=== PATIENT | male | born 1985 | race Caucasian/White ===

== ENCOUNTER 2018-07-06 03:26 | Inpatient (IN) | payer OTHER ==
[2018-07-06] MEDS: ONDANSETRON 4 MG INJ IV (04:27)
[2018-07-06] MEDS: morphine 4 MG/ML VIAL IV (04:27)
[2018-07-06] MEDS: PIPER-TAZO 3.375 GM IV (PMX) 100 ML IVPB ×2 (04:27→21:07)
[2018-07-06] MEDS: SOD CHLORIDE 0.9% 1,000 ML IV ×2 (04:27→07:52)
[2018-07-06 04:40] LABS: WHITE BLOOD COUNT 2.5 10^3/ul (4.8-10.8)
[2018-07-06 04:40] LABS: ABNORMAL IP MESSAGE 1; HEMATOCRIT 26.8 % (42.0-52.0); HEMOGLOBIN 8.6 g/dl (14.0-18.0); MEAN CORPUSCULAR HEMOGLOBIN 26.4 pg (29.0-33.0); MEAN CORPUSCULAR HGB CONC 32.1 g/dl (32.0-37.0); MEAN CORPUSCULAR VOLUME 82.2 fl (82.0-101.0); PLATELET COUNT 56 10^3/UL (140-415); POSITIVE DIFF @See below; RED BLOOD COUNT 3.26 10^6/ul (4.70-6.10)
[2018-07-06 04:43] LABS: ADD MAN DIFF? YES
[2018-07-06 04:56] LABS: ANION GAP 12 (8-16); BLOOD UREA NITROGEN 30 mg/dl (7-20); CALCIUM 8.6 mg/dl (8.4-10.2); CARBON DIOXIDE 29 mmol/L (21-31); CHLORIDE 95 mmol/L (97-110); CREATININE 0.96 mg/dl (0.61-1.24); GLUCOSE 127 mg/dl (70-220); POTASSIUM 4.1 mmol/L (3.5-5.1); SODIUM 132 mmol/L (135-144)
[2018-07-06 04:58] LABS: INR 1.03; PROTIME 13.6 Sec (11.9-14.9); PT RATIO 1.1
[2018-07-06 04:59] LABS: PARTIAL THROMBOPLASTIN TIME 28.9 Sec (25.0-35.0)
[2018-07-06 05:08] LABS: TROPONIN-I < 0.012 ng/ml (0.000-0.120)
[2018-07-06] MEDS ORDERED: HALOPERIDOL 5 MG INJ (05:32)
[2018-07-06] MEDS: HALOPERIDOL 5 MG INJ IM (05:38)
[2018-07-06 06:26] LABS: ANISOCYTOSIS 1+ (0-0); BAND NEUTROPHILS #M 0.3 10^3/ul (0.0-0.6); BAND NEUTROPHILS % (M) 14 % (0-4); ERYTHROBLAST% (NRBC) (M) 1 % (0-0); GIANT THROMBO% (M) 1 % (0-0); LYMPHOCYTES #M 0.2 10^3/ul (0.8-2.9); LYMPHOCYTES % (M) 8 % (15-51); MICROCYTOSIS 1+ (0-0); MONOCYTES % (M) 3 % (0-11); OVALOCYTES 1+ (0-0); PLATELET ESTIMATE SIG DECREASED; POIKILOCYTOSIS 2+ (0-0); POLYCHROMASIA 1+ (0-0); REACTIVE LYMPHOCYTES% (M) 1 % (0-0); SEG NEUT #M 1.9 10^3/ul (1.6-7.5); SEGMENTED NEUTROPHILS (M) % 74 % (39-77); SMUDGE%M 5 % (0-0); SPHEROCYTES 1+ (0-0); TEAR DROP CELLS 1+ (0-0)
[2018-07-06] MEDS: VANCOMYCIN 1 GM (PMX) 250 ML IVPB (07:52)
[2018-07-06] MEDS: SOD CHLORIDE 0.9% 500 ML IV (08:56)
[2018-07-06] MEDS ORDERED: VANCOMYCIN IV PER PHARMACY XX (15:00)
[2018-07-06] MEDS ORDERED: ONDANSETRON 4 MG INJ IV (15:00)
[2018-07-06 15:29] LABS: LACTIC ACID 1.6 mmol/L (0.5-2.0)
[2018-07-06 15:31] LABS: LIPASE 125 U/L (23-300)
[2018-07-06 15:39] LABS: CREATINE KINASE 288 IU/L (23-200)
[2018-07-06 15:52] LABS: CK INDEX 0.1; CK-MB < 0.22 ng/ml (0.0-2.4); TROPONIN-I < 0.012 ng/ml (0.000-0.120)
[2018-07-06] MEDS: ACETAMINOPHEN 325 MG TAB PO (16:26)
[2018-07-06] MEDS: HYDROCODONE/APAP (5/325) TAB PO (16:26)
[2018-07-06 16:49] LABS: ADD UMIC YES; UR ASCORBIC ACID NEGATIVE (NEGATIVE); UR BACTERIA FEW /HPF (NONE SEEN); UR BILIRUBIN (Dip) NEGATIVE (NEGATIVE); UR BLOOD (Dip) 1+ mg/dL (NEGATIVE); UR CLARITY CLEAR (CLEAR); UR COLOR YELLOW (YELLOW); UR GLUCOSE (Dip) NEGATIVE (NEGATIVE); UR KETONES (Dip) NEGATIVE (NEGATIVE); UR LEUKOCYTE ESTERASE (Dip) NEGATIVE Leu/ul (NEGATIVE); UR NITRITE (Dip) NEGATIVE (NEGATIVE); UR RBC 2 /HPF (0-5); UR SPECIFIC GRAVITY (Dip) 1.018 (1.003-1.030); UR TOTAL PROTEIN (Dip) 1+ mg/dl (NEGATIVE); UR UROBILINOGEN (Dip) 2+ mg/dL (NEGATIVE); UR WBC 1 /HPF (0-5)
[2018-07-06 17:06] LABS: BARBITURATES Negative (NEGATIVE); BENZODIAZEPINES Negative (NEGATIVE); CANNABINOIDS Negative (NEGATIVE); COCAINE Negative (NEGATIVE)
[2018-07-06 17:09] LABS: AMPHETAMINE/METHAMPHETAMINE Positive (NEGATIVE); OPIATES Positive (NEGATIVE)
[2018-07-06 17:18] LABS: LACTIC ACID 1.8 mmol/L (0.5-2.0)
[2018-07-06] MEDS: VANCOMYCIN 1 GM 250 ML IVPB (17:47)
[2018-07-06 18:03] LABS: HIV 1&2 ANTIBODY REACTIVE (NEGATIVE)
[2018-07-06] MEDS: DEXTROSE 5%-0.45% NACL 1,000 ML IV (18:23)
[2018-07-06] MEDS: DOCUSATE SODIUM 100 MG CAP PO (21:00)
[2018-07-06] MEDS: FAMOTIDINE 20 MG INJ IV (21:05)
[2018-07-06] MEDS: LORAZEPAM 2 MG INJ IV (21:06)
[2018-07-07] MEDS: METOCLOPRAMIDE 10 MG INJ IV ×5 (00:01→23:18)
[2018-07-07] MEDS: VANCOMYCIN 1 GM 250 ML IVPB ×4 (00:02→20:00)
[2018-07-07] MEDS: DEXTROSE 5%-0.45% NACL 1,000 ML IV ×4 (04:17→23:33)
[2018-07-07] MEDS: HYDROCODONE/APAP (5/325) TAB PO ×2 (04:17→10:30)
[2018-07-07] MEDS: PIPER-TAZO 3.375 GM IV (PMX) 100 ML IVPB ×2 (05:26→13:00)
[2018-07-07 06:10] LABS: ABNORMAL IP MESSAGE 1; HEMATOCRIT 22.9 % (42.0-52.0); HEMOGLOBIN 7.5 g/dl (14.0-18.0); MEAN CORPUSCULAR HEMOGLOBIN 26.5 pg (29.0-33.0); MEAN CORPUSCULAR HGB CONC 32.8 g/dl (32.0-37.0); MEAN CORPUSCULAR VOLUME 80.9 fl (82.0-101.0); PLATELET COUNT 55 10^3/UL (140-415); POSITIVE DIFF @See below; RED BLOOD COUNT 2.83 10^6/ul (4.70-6.10); RED CELL DISTRIBUTION WIDTH 16.1 % (11.5-14.5)
[2018-07-07 06:10] LABS: WHITE BLOOD COUNT 2.3 10^3/ul (4.8-10.8)
[2018-07-07 06:16] LABS: ADD MAN DIFF? YES
[2018-07-07 06:35] LABS: PHOSPHORUS 2.3 mg/dl (2.5-4.9)
[2018-07-07 06:37] LABS: ANION GAP 8 (8-16); BLOOD UREA NITROGEN 19 mg/dl (7-20); CALCIUM 7.6 mg/dl (8.4-10.2); CARBON DIOXIDE 23 mmol/L (21-31); CHLORIDE 108 mmol/L (97-110); CREATININE 0.66 mg/dl (0.61-1.24); GLUCOSE 128 mg/dl (70-220); MAGNESIUM 1.7 mg/dl (1.7-2.5); POTASSIUM 3.2 mmol/L (3.5-5.1); SODIUM 136 mmol/L (135-144)
[2018-07-07 07:13] LABS: ANISOCYTOSIS 1+ (0-0); BAND NEUTROPHILS #M 0.4 10^3/ul (0.0-0.6); BAND NEUTROPHILS % (M) 19 % (0-4); BURR CELLS 1+ (0-0); GIANT THROMBO% (M) 1 % (0-0); LYMPHOCYTES % (M) 3 % (15-51); MICROCYTOSIS 1+ (0-0); MONOCYTES % (M) 3 % (0-11); OVALOCYTES 3+ (0-0); PLATELET ESTIMATE SIG DECREASED; POIKILOCYTOSIS 3+ (0-0); POLYCHROMASIA 1+ (0-0); SEG NEUT #M 1.7 10^3/ul (1.6-7.5); SEGMENTED NEUTROPHILS (M) % 75 % (39-77); SMUDGE%M 5 % (0-0)
[2018-07-07 08:31] LABS: HEMOGLOBIN A1C 5.6 % (0-5.9)
[2018-07-07] MEDS: DOCUSATE SODIUM 100 MG CAP PO ×2 (09:38→20:04)
[2018-07-07] MEDS: FAMOTIDINE 20 MG INJ IV ×2 (09:38→20:04)
[2018-07-07] MEDS ORDERED: NICOTINE POLACRILEX 2 MG GUM BUCCAL (12:30)
[2018-07-07] MEDS: NICOTINE (21 MG/24 HR) PATCH TRANSDERM (13:23)
[2018-07-07] MEDS: LORAZEPAM 2 MG INJ IV ×2 (14:23→23:16)
[2018-07-07] MEDS: POTASSIUM PHOSPHATE 15 MM in SOD CHLORIDE 0.9% 250 ML IVPB (14:54)
[2018-07-07] MEDS: FLUCONAZOLE 100 MG TAB PO (15:07)
[2018-07-07] MEDS: TRIMETHOPRIM/SULFAMETHOX (DS) TAB PO (15:07)
[2018-07-07] MEDS: AZITHROMYCIN 250 MG TAB PO (15:07)
[2018-07-07] MEDS: ACYCLOVIR 400 MG TAB PO (16:17)
[2018-07-07] MEDS: NYSTATIN SUSP 5 ML CUP PO ×2 (16:17→20:03)
[2018-07-07] MEDS: SOD CHLORIDE 0.9% 100 ML (17:21)
[2018-07-07] MEDS: IOHEXOL 300MG/ML 150 ML BTL (17:22)
[2018-07-07 18:49] LABS: VANCOMYCIN,TROUGH 15.3 ug/ml (10.0-20.0)
[2018-07-07 21:19] LABS: CREATINE KINASE 104 IU/L (23-200)
[2018-07-07 21:31] LABS: CK INDEX 0.4; CK-MB 0.42 ng/ml (0.0-2.4); TROPONIN-I 0.015 ng/ml (0.000-0.120)
[2018-07-08] MEDS: VANCOMYCIN 1 GM 250 ML IVPB (04:29)
[2018-07-08] MEDS: METOCLOPRAMIDE 10 MG INJ IV (05:10)
[2018-07-08] MEDS: HYDROCODONE/APAP (5/325) TAB PO (05:15)
[2018-07-08] MEDS: DOCUSATE SODIUM 100 MG CAP PO (09:00)
[2018-07-08] MEDS: FAMOTIDINE 20 MG INJ IV (09:00)
[2018-07-08] MEDS: NICOTINE (21 MG/24 HR) PATCH TRANSDERM (09:06)
[2018-07-08] MEDS: AZITHROMYCIN 250 MG TAB PO (09:06)
[2018-07-08] MEDS: TRIMETHOPRIM/SULFAMETHOX (DS) TAB PO (09:06)
[2018-07-08] MEDS: FLUCONAZOLE 100 MG TAB PO (09:06)
[2018-07-08] MEDS: ACYCLOVIR 400 MG TAB PO (09:06)
[2018-07-08] MEDS: NYSTATIN SUSP 5 ML CUP PO (09:07)
[2018-07-08] MEDS: CYANOCOBALAMIN 500 MCG TAB PO (09:30)
[2018-07-08] MEDS: FOLIC ACID 1 MG TAB PO (09:30)
[2018-07-08] MEDS: DEXTROSE 5%-0.45% NACL 1,000 ML IV (09:44)
[2018-07-08 17:41] LABS: LYMPHOCYTE - % CD4 (HELPER) 3 % (30-61); LYMPHOCYTE - %CD8 (SUPPRESSOR) 64 % (12-42); LYMPHOCYTE - ABSOLUTE 425 cells/uL (850-3900); LYMPHOCYTE - ABSOLUTE CD4 <20 cells/uL (490-1740); LYMPHOCYTE - ABSOLUTE CD8 273 cells/uL (180-1170); LYMPHOCYTE - CD4/CD8 RATIO 0.04 (0.86-5.00)
== END 2018-07-08 10:40 | disposition left against medical advice (07) | DRG 975 ==
LOC: E/R 03:26 → 6WM 06:31
DX: A41.9 Sepsis, unspecified organism (principal); B20 Human immunodeficiency virus [HIV] disease; E87.1 Hypo-osmolality and hyponatremia; J18.9 Pneumonia, unspecified organism; B37.81 Candidal esophagitis; I07.9 Rheumatic tricuspid valve disease, unspecified; F15.10 Other stimulant abuse, uncomplicated; F12.10 Cannabis abuse, uncomplicated; G40.909 Epilepsy, unspecified, not intractable, without status epilepticus; R11.2 Nausea with vomiting, unspecified; E87.6 Hypokalemia; F60.9 Personality disorder, unspecified; F17.210 Nicotine dependence, cigarettes, uncomplicated; Z91.14 Patient's other noncompliance with medication regimen
CPT/HCPCS: 36415; 71045; 71260; 80048; 80202; 80307; 81001; 82550; 82553; 83036; 83605; 83690; 83735; 84100; 84484; 85025; 85610; 85730; 86360; 86701; 86703; 87040; 87086; 87536; 93005; 93306; 96365; 96366; 96372; 96375; 99285-25

== ENCOUNTER 2018-10-31 06:24 | Observation (INO) | payer OTHER ==
[2018-10-31 06:55] LABS: ABNORMAL IP MESSAGE 1; ADD MAN DIFF? NO; HEMATOCRIT 32.4 % (42.0-52.0); HEMOGLOBIN 10.3 g/dl (14.0-18.0); MEAN CORPUSCULAR HEMOGLOBIN 25.8 pg (29.0-33.0); MEAN CORPUSCULAR HGB CONC 31.8 g/dl (32.0-37.0); MEAN PLATELET VOLUME 9.7 fl (7.4-10.4); PLATELET COUNT 233 10^3/UL (140-415); POSITIVE DIFF @See below; RED CELL DISTRIBUTION WIDTH 15.5 % (11.5-14.5)
[2018-10-31 06:55] LABS: WHITE BLOOD COUNT 2.1 10^3/ul (4.8-10.8)
[2018-10-31 07:14] LABS: INR 1.08; PROTIME 14.1 Sec (11.9-14.9); PT RATIO 1.1
[2018-10-31 07:15] LABS: PARTIAL THROMBOPLASTIN TIME 29.7 Sec (23.0-35.0)
[2018-10-31 07:16] LABS: ALANINE AMINOTRANSFERASE 20 IU/L (13-69); ALBUMIN/GLOBULIN RATIO 0.78; ALKALINE PHOSPHATASE 159 IU/L (42-121); ANION GAP 13 (5-13); ASPARTATE AMINO TRANSFERASE 49 IU/L (15-46); BILIRUBIN,INDIRECT 0.7 mg/dl (0-1.1); BILIRUBIN,TOTAL 0.7 mg/dl (0.2-1.3); BLOOD UREA NITROGEN 33 mg/dl (7-20); CALCIUM 10.2 mg/dl (8.4-10.2); CARBON DIOXIDE 32 mmol/L (21-31); CHLORIDE 92 mmol/L (97-110); CREATININE 0.77 mg/dl (0.61-1.24); Estimated GFR > 60 mL/min (>60); GLUCOSE 147 mg/dl (70-220); POTASSIUM 3.4 mmol/L (3.5-5.1); SODIUM 137 mmol/L (135-144); TOTAL PROTEIN 9.1 g/dl (6.1-8.1)
[2018-10-31] MEDS: ONDANSETRON 4 MG INJ IV (07:16)
[2018-10-31] MEDS: CEFTRIAXONE 1 GM/50 ML (PMX) 50 ML IVPB (07:16)
[2018-10-31] MEDS: SODIUM CHLORIDE 0.9% 1L BAG IV* (07:17)
[2018-10-31 07:26] LABS: TROPONIN-I < 0.012 ng/ml (0.000-0.120)
[2018-10-31] MEDS: KETOROLAC 30 MG INJ IV (07:34)
[2018-10-31] MEDS: POTASSIUM CHLORIDE (SR) 20 MEQ TAB PO (07:58)
[2018-10-31 08:23] LABS: ANISOCYTOSIS 1+ (0-0); BAND NEUTROPHILS #M 0.4 10^3/ul (0.0-0.6); BAND NEUTROPHILS % (M) 21 % (0-4); ERYTHROBLAST% (NRBC) (M) 1 % (0-0); GIANT THROMBO% (M) 3 % (0-0); LYMPHOCYTES #M 0.5 10^3/ul (0.8-2.9); LYMPHOCYTES % (M) 28 % (15-51); METAMYELOCYTES %M 4 % (0-0); MICROCYTOSIS 1+ (0-0); MONOCYTE #M 0.3 10^3/ul (0.3-0.9); MONOCYTES % (M) 18 % (0-11); MYELOCYTES % (M) 1 % (0-0); OVALOCYTES 1+ (0-0); PLASMAC%(M) 2 % (0); PLATELET ESTIMATE NORMAL; POIKILOCYTOSIS 3+ (0-0); POLYCHROMASIA 3+ (0-0); PROMYELOCYTES % (M) 1 % (0-0); SEG NEUT #M 0.5 10^3/ul (1.6-7.5); SEGMENTED NEUTROPHILS (M) % 25 % (39-77); SMUDGE%M 2 % (0-0)
[2018-10-31 08:25] LABS: TOXIC GRANULATION 1+ (0-0)
[2018-10-31] MEDS ORDERED: ONDANSETRON 4 MG INJ IV ×2 (09:00→11:00)
[2018-10-31] MEDS ORDERED: NACL 0.9% 3 ML SYG IV (11:00)
[2018-10-31] MEDS: SOD CHLORIDE 0.9% 1,000 ML IV ×3 (11:21→23:09)
[2018-10-31 12:01] LABS: LACTIC ACID 1.3 mmol/L (0.5-2.0)
[2018-10-31] MEDS ORDERED: ALBUTEROL/IPRATROPIUM (NEB) 3 ML AMP HHN (12:30)
[2018-10-31] MEDS: METOCLOPRAMIDE 10 MG INJ IV ×3 (13:09→23:05)
[2018-10-31] MEDS: LEVOFLOXACIN 750MG/D5W (PMX) 150 ML IVPB (13:10)
[2018-10-31] MEDS: TRIMETHOPRIM/SULFAMETHOX (DS) TAB PO ×2 (13:10→21:11)
[2018-10-31] MEDS: LACTOBACILLUS RHAMNOSUS CAP PO ×2 (13:10→21:11)
[2018-10-31] MEDS: metroNIDAZOLE 500 MG/NS (PMX) 100 ML IVPB ×2 (14:59→21:12)
[2018-10-31] MEDS ORDERED: OXYCODONE/ACETAMINOPHEN (5/325) TAB PO (18:00)
[2018-10-31] MEDS ORDERED: OXYCODONE/ACETAMINOPHEN (10/325) TAB PO (18:00)
[2018-10-31] MEDS: morphine SULFATE/PF (2 MG/2 ML) SYG IV ×2 (18:24→23:05)
[2018-10-31] MEDS ORDERED: CIPROFLOXACIN 400MG/D5W 200 ML IVPB (21:00)
[2018-10-31] MEDS: FAMOTIDINE 20 MG INJ IV (21:12)
[2018-11-01 01:14] LABS: ADD UMIC YES; UR ASCORBIC ACID 40 mg/dL (NEGATIVE); UR BILIRUBIN (Dip) NEGATIVE (NEGATIVE); UR BLOOD (Dip) NEGATIVE (NEGATIVE); UR CLARITY CLOUDY (CLEAR); UR COLOR AMBER (YELLOW); UR GLUCOSE (Dip) NEGATIVE (NEGATIVE); UR KETONES (Dip) NEGATIVE (NEGATIVE); UR LEUKOCYTE ESTERASE (Dip) NEGATIVE Leu/ul (NEGATIVE); UR MUCUS MANY /HPF (NONE SEEN); UR NITRITE (Dip) NEGATIVE (NEGATIVE); UR RBC 1 /HPF (0-5); UR SPECIFIC GRAVITY (Dip) 1.032 (1.003-1.030); UR TOTAL PROTEIN (Dip) 3+ mg/dl (NEGATIVE); UR UROBILINOGEN (Dip) NEGATIVE (NEGATIVE); UR WBC 4 /HPF (0-5)
[2018-11-01] MEDS: morphine SULFATE/PF (2 MG/2 ML) SYG IV ×3 (03:16→12:46)
[2018-11-01] MEDS: metroNIDAZOLE 500 MG/NS (PMX) 100 ML IVPB ×3 (05:18→21:01)
[2018-11-01] MEDS: METOCLOPRAMIDE 10 MG INJ IV ×4 (05:18→23:48)
[2018-11-01 05:45] LABS: WHITE BLOOD COUNT 1.5 10^3/ul (4.8-10.8)
[2018-11-01 05:45] LABS: ABNORMAL IP MESSAGE 1; HEMATOCRIT 25.4 % (42.0-52.0); HEMOGLOBIN 8.3 g/dl (14.0-18.0); MEAN CORPUSCULAR HEMOGLOBIN 26.3 pg (29.0-33.0); MEAN CORPUSCULAR HGB CONC 32.7 g/dl (32.0-37.0); MEAN CORPUSCULAR VOLUME 80.4 fl (82.0-101.0); MEAN PLATELET VOLUME 11.6 fl (7.4-10.4); PLATELET COUNT 212 10^3/UL (140-415); POSITIVE DIFF @See below; RED BLOOD COUNT 3.16 10^6/ul (4.70-6.10); RED CELL DISTRIBUTION WIDTH 15.6 % (11.5-14.5)
[2018-11-01 06:04] LABS: ADD MAN DIFF? YES
[2018-11-01 06:23] LABS: ANION GAP 12 (5-13); BLOOD UREA NITROGEN 30 mg/dl (7-20); CALCIUM 8.6 mg/dl (8.4-10.2); CARBON DIOXIDE 26 mmol/L (21-31); CHLORIDE 97 mmol/L (97-110); CREATININE 0.74 mg/dl (0.61-1.24); Estimated GFR > 60 mL/min (>60); GLUCOSE 95 mg/dl (70-220); MAGNESIUM 1.6 mg/dl (1.7-2.5); PHOSPHORUS 2.8 mg/dl (2.5-4.9); POTASSIUM 3.3 mmol/L (3.5-5.1); SODIUM 135 mmol/L (135-144)
[2018-11-01] MEDS: LACTOBACILLUS RHAMNOSUS CAP PO ×2 (08:41→21:02)
[2018-11-01] MEDS: FAMOTIDINE 20 MG INJ IV ×2 (08:41→21:02)
[2018-11-01] MEDS: TRIMETHOPRIM/SULFAMETHOX (DS) TAB PO (08:42)
[2018-11-01] MEDS: SOD CHLORIDE 0.9% 1,000 ML IV ×3 (08:42→17:56)
[2018-11-01] MEDS: ELVITEG/COBI/EMTRIC/TENOFO ALA 1 EACH TABLET PO (09:00)
[2018-11-01] MEDS: INFLUENZA VIRUS VACCINE 0.5 ML (DISPENSING) IM* (09:00)
[2018-11-01 10:05] LABS: ANISOCYTOSIS 1+ (0-0); BAND NEUTROPHILS #M 0.2 10^3/ul (0.0-0.6); BAND NEUTROPHILS % (M) 15 % (0-4); BASOPHILS % (M) 1 % (0-2); BURR CELLS 3+ (0-0); ERYTHROBLAST% (NRBC) (M) 1 % (0-0); GIANT THROMBO% (M) 7 % (0-0); LYMPHOCYTES #M 0.5 10^3/ul (0.8-2.9); LYMPHOCYTES % (M) 39 % (15-51); MICROCYTOSIS 1+ (0-0); MONOCYTE #M 0.1 10^3/ul (0.3-0.9); MONOCYTES % (M) 11 % (0-11); OVALOCYTES 2+ (0-0); PLATELET ESTIMATE NORMAL; POIKILOCYTOSIS 3+ (0-0); POLYCHROMASIA 2+ (0-0); SEG NEUT #M 0.5 10^3/ul (1.6-7.5); SEGMENTED NEUTROPHILS (M) % 34 % (39-77); SMUDGE%M 18 % (0-0)
[2018-11-01] MEDS: NICOTINE (21 MG/24 HR) PATCH TRANSDERM (11:38)
[2018-11-01] MEDS: LEVOFLOXACIN 750MG/D5W (PMX) 150 ML IVPB (12:46)
[2018-11-01] MEDS ORDERED: NYSTATIN SUSP 5 ML CUP PO (13:00)
[2018-11-01 13:17] LABS: PATH REVIEW? YES
[2018-11-01 14:51] LABS: BARBITURATES Negative (NEGATIVE); BENZODIAZEPINES Negative (NEGATIVE); CANNABINOIDS Negative (NEGATIVE); COCAINE Negative (NEGATIVE)
[2018-11-01] MEDS: POTASSIUM CHLORIDE (SR) 20 MEQ TAB PO (15:00)
[2018-11-01] MEDS: HYDROmorphONE 2 MG/ML SYG IV ×3 (15:00→23:48)
[2018-11-01 15:10] LABS: OPIATES Positive (NEGATIVE)
[2018-11-01 15:15] LABS: AMPHETAMINE/METHAMPHETAMINE POSITIVE (NEGATIVE)
[2018-11-01] MEDS: FLUCONAZOLE 100 MG/50 ML (PMX) 50 ML IVPB (16:22)
[2018-11-01] MEDS: MAGNESIUM SULFATE 3 GM in DEXTROSE 5% 100 ML IVPB (17:40)
[2018-11-01] MEDS: NYSTATIN SUSP 5 ML CUP PO ×2 (17:40→21:02)
[2018-11-01] MEDS: ACYCLOVIR 400 MG TAB PO (21:02)
[2018-11-02] MEDS: SOD CHLORIDE 0.9% 1,000 ML IV ×2 (01:12→10:41)
[2018-11-02] MEDS: HYDROmorphONE 2 MG/ML SYG IV ×3 (03:59→12:23)
[2018-11-02] MEDS: METOCLOPRAMIDE 10 MG INJ IV ×2 (05:13→12:23)
[2018-11-02] MEDS: metroNIDAZOLE 500 MG/NS (PMX) 100 ML IVPB (05:13)
[2018-11-02] MEDS: FAMOTIDINE 20 MG INJ IV (08:06)
[2018-11-02] MEDS: LACTOBACILLUS RHAMNOSUS CAP PO (08:06)
[2018-11-02] MEDS: NYSTATIN SUSP 5 ML CUP PO ×2 (08:06→12:23)
[2018-11-02] MEDS: ACYCLOVIR 400 MG TAB PO (08:06)
[2018-11-02] MEDS: TRIMETHOPRIM/SULFAMETHOX (DS) TAB PO (08:07)
[2018-11-02] MEDS: NICOTINE (21 MG/24 HR) PATCH TRANSDERM (08:08)
[2018-11-02] MEDS: LEVOFLOXACIN 750MG/D5W (PMX) 150 ML IVPB ×2 (12:22→12:30)
[2018-11-02] MEDS: GUAIFENESIN/DM 5ML CUP PO (13:15)
[2018-11-03 10:53] LABS: LYMPHOCYTE - % CD4 (HELPER) 3 % (30-61); LYMPHOCYTE - %CD8 (SUPPRESSOR) 69 % (12-42); LYMPHOCYTE - ABSOLUTE 500 cells/uL (850-3900); LYMPHOCYTE - ABSOLUTE CD4 <20 cells/uL (490-1740); LYMPHOCYTE - ABSOLUTE CD8 347 cells/uL (180-1170); LYMPHOCYTE - CD4/CD8 RATIO 0.05 (0.86-5.00)
== END 2018-11-02 15:40 ==
LOC: E/R 06:24 → 2NE 08:37
DX: R11.2 Nausea with vomiting, unspecified (principal); R19.7 Diarrhea, unspecified; B20 Human immunodeficiency virus [HIV] disease; J18.9 Pneumonia, unspecified organism; D61.818 Other pancytopenia; G40.909 Epilepsy, unspecified, not intractable, without status epilepticus; Z72.0 Tobacco use; B37.0 Candidal stomatitis; B37.81 Candidal esophagitis; F19.10 Other psychoactive substance abuse, uncomplicated; Z66 Do not resuscitate; Z23 Encounter for immunization
CPT/HCPCS: 36415; 71045; 74176; 80048; 80053; 80307; 81001; 83605; 83735; 84100; 84484; 85025; 85610; 85730; 86360; 87040; 87045; 87075; 87081; 87086; 87400; 87536; 90686; 93005; 96365; 96375; 99285-25

== ENCOUNTER 2018-11-02 23:37 | Observation (INO) | payer OTHER ==
[2018-11-03] MEDS: ONDANSETRON 4 MG INJ IV ×2 (03:43→08:23)
[2018-11-03] MEDS: SOD CHLORIDE 0.9% 1,000 ML IV ×2 (03:43→06:04)
[2018-11-03] MEDS: LOPERAMIDE 2 MG CAP PO (03:43)
[2018-11-03 04:02] LABS: WHITE BLOOD COUNT 3.5 10^3/ul (4.8-10.8)
[2018-11-03 04:02] LABS: ABNORMAL IP MESSAGE 1; HEMATOCRIT 26.8 % (42.0-52.0); HEMOGLOBIN 8.6 g/dl (14.0-18.0); MEAN CORPUSCULAR HEMOGLOBIN 26.5 pg (29.0-33.0); MEAN CORPUSCULAR HGB CONC 32.1 g/dl (32.0-37.0); MEAN CORPUSCULAR VOLUME 82.5 fl (82.0-101.0); MEAN PLATELET VOLUME 10.2 fl (7.4-10.4); PLATELET COUNT 272 10^3/UL (140-415); POSITIVE DIFF @See below; RED BLOOD COUNT 3.25 10^6/ul (4.70-6.10); RED CELL DISTRIBUTION WIDTH 15.7 % (11.5-14.5)
[2018-11-03 04:04] LABS: ADD MAN DIFF? YES
[2018-11-03 04:28] LABS: ALANINE AMINOTRANSFERASE 18 IU/L (13-69); ALBUMIN 3.3 g/dl (3.3-4.9); ALBUMIN/GLOBULIN RATIO 0.78; ALKALINE PHOSPHATASE 111 IU/L (42-121); ANION GAP 10 (5-13); ASPARTATE AMINO TRANSFERASE 45 IU/L (15-46); BILIRUBIN,INDIRECT 0.1 mg/dl (0-1.1); BILIRUBIN,TOTAL 0.1 mg/dl (0.2-1.3); BLOOD UREA NITROGEN 12 mg/dl (7-20); CALCIUM 8.5 mg/dl (8.4-10.2); CARBON DIOXIDE 24 mmol/L (21-31); CHLORIDE 101 mmol/L (97-110); Estimated GFR > 60 mL/min (>60); GLUCOSE 110 mg/dl (70-220); LIPASE 163 U/L (23-300); SODIUM 135 mmol/L (135-144); TOTAL PROTEIN 7.5 g/dl (6.1-8.1)
[2018-11-03] MEDS: METOCLOPRAMIDE 10 MG INJ IV (05:25)
[2018-11-03] MEDS ORDERED: METOCLOPRAMIDE 10 MG INJ IV (05:30)
[2018-11-03] MEDS ORDERED: ACETAMINOPHEN 325 MG TAB PO (05:30)
[2018-11-03] MEDS ORDERED: NACL 0.9% 3 ML SYG IV (05:30)
[2018-11-03 05:47] LABS: LYMPHOCYTES # 0.4 10^3/ul (0.8-2.9); LYMPHOCYTES % 10.7 % (15.0-51.0); MONOCYTE # 0.3 10^3/ul (0.3-0.9); MONOCYTES % 8.4 % (0.0-11.0)
[2018-11-03 06:14] LABS: ETHANOL < 10.0 mg/dl (0-0)
[2018-11-03] MEDS: LEVOFLOXACIN 750 MG TABLET PO (06:54)
[2018-11-03] MEDS: HYDROmorphONE 0.5 MG/0.5 ML SYG IV (08:23)
[2018-11-03] MEDS: LACTOBACILLUS RHAMNOSUS CAP PO (08:30)
[2018-11-03] MEDS: ELVITEG/COBI/EMTRIC/TENOFO ALA 1 EACH TABLET PO (08:30)
[2018-11-03] MEDS: NYSTATIN SUSP 5 ML CUP PO (08:30)
[2018-11-03] MEDS: TRIMETHOPRIM/SULFAMETHOX (DS) TAB PO (08:30)
[2018-11-03] MEDS: FAMOTIDINE 20 MG TAB PO (08:30)
[2018-11-03] MEDS: FLUCONAZOLE 200 MG TAB PO (08:30)
[2018-11-03] MEDS: ACYCLOVIR 400 MG TAB PO (08:31)
[2018-11-03] MEDS: GUAIFENESIN/DM 5ML CUP PO (09:36)
[2018-11-03] MEDS: NICOTINE (21 MG/24 HR) PATCH TRANSDERM (10:33)
[2018-11-03] MEDS ORDERED: METOCLOPRAMIDE 5 MG TAB PO (11:30)
== END 2018-11-03 11:06 | disposition home or self-care (01) ==
LOC: E/R 23:37 → PP2 11-03 05:17
DX: R11.11 Vomiting without nausea (principal); J18.9 Pneumonia, unspecified organism; I12.0 Hypertensive chronic kidney disease with stage 5 chronic kidney disease or end stage renal disease; N18.6 End stage renal disease; Z99.2 Dependence on renal dialysis; Z66 Do not resuscitate; F15.20 Other stimulant dependence, uncomplicated; D64.9 Anemia, unspecified; F17.200 Nicotine dependence, unspecified, uncomplicated; Z91.19 Patient's noncompliance with other medical treatment and regimen
CPT/HCPCS: 36415; 71045; 80053; 80307; 83690; 85025; 93005; 96361; 96374; 99285-25; G0378

== ENCOUNTER 2018-11-16 15:05 | Inpatient (IN) | payer OTHER ==
[2018-11-16] MEDS: SOD CHLORIDE 0.9% 1,000 ML IV ×4 (15:10→22:30)
[2018-11-16] MEDS: SODIUM CHLORIDE 0.9% 1L BAG IV* (15:32)
[2018-11-16 15:50] LABS: WHITE BLOOD COUNT 3.6 10^3/ul (4.8-10.8)
[2018-11-16 15:50] LABS: ABNORMAL IP MESSAGE 1; HEMATOCRIT 26.4 % (42.0-52.0); HEMOGLOBIN 8.3 g/dl (14.0-18.0); MEAN CORPUSCULAR HEMOGLOBIN 26.2 pg (29.0-33.0); MEAN CORPUSCULAR HGB CONC 31.4 g/dl (32.0-37.0); MEAN CORPUSCULAR VOLUME 83.3 fl (82.0-101.0); PLATELET COUNT 35 10^3/UL (140-415); POSITIVE DIFF @See below; RED BLOOD COUNT 3.17 10^6/ul (4.70-6.10); RED CELL DISTRIBUTION WIDTH 17.4 % (11.5-14.5)
[2018-11-16] MEDS: KETOROLAC 30 MG INJ IV (15:50)
[2018-11-16] MEDS: CEFEPIME 2GM/50 ML (PMX) 50 ML IVPB (15:51)
[2018-11-16 15:52] LABS: ADD MAN DIFF? YES
[2018-11-16 16:07] LABS: INR 1.28; PROTIME 16.1 Sec (11.9-14.9); PT RATIO 1.3
[2018-11-16 16:09] LABS: ALANINE AMINOTRANSFERASE 27 IU/L (13-69); ALBUMIN/GLOBULIN RATIO 0.78; ALKALINE PHOSPHATASE 211 IU/L (42-121); ANION GAP 14 (5-13); ASPARTATE AMINO TRANSFERASE 58 IU/L (15-46); BLOOD UREA NITROGEN 95 mg/dl (7-20); CALCIUM 8.5 mg/dl (8.4-10.2); CARBON DIOXIDE 27 mmol/L (21-31); CHLORIDE 93 mmol/L (97-110); CREATININE 2.98 mg/dl (0.61-1.24); Estimated GFR 25 mL/min (>60); GLUCOSE 122 mg/dl (70-220); POTASSIUM 4.3 mmol/L (3.5-5.1); SODIUM 134 mmol/L (135-144); TOTAL PROTEIN 6.8 g/dl (6.1-8.1)
[2018-11-16 16:20] LABS: TROPONIN-I < 0.012 ng/ml (0.000-0.120)
[2018-11-16] MEDS: VANCOMYCIN 1 GM (PMX) 250 ML IVPB (16:20)
[2018-11-16] MEDS ORDERED: ONDANSETRON 4 MG INJ IV (16:30)
[2018-11-16 16:33] LABS: ANISOCYTOSIS 1+ (0-0); BAND NEUTROPHILS #M 0.3 10^3/ul (0.0-0.6); BAND NEUTROPHILS % (M) 9 % (0-4); LYMPHOCYTES #M 0.1 10^3/ul (0.8-2.9); LYMPHOCYTES % (M) 4 % (15-51); MICROCYTOSIS 1+ (0-0); MONOCYTE #M 0.1 10^3/ul (0.3-0.9); MONOCYTES % (M) 4 % (0-11); PLATELET ESTIMATE SIG DECREASED; POIKILOCYTOSIS 2+ (0-0); POLYCHROMASIA 2+ (0-0); SEGMENTED NEUTROPHILS (M) % 83 % (39-77); SMUDGE%M 4 % (0-0); TEAR DROP CELLS 2+ (0-0)
[2018-11-16] MEDS: HYDROmorphONE 1 MG/ML SYG IV (22:27)
[2018-11-16] MEDS: ONDANSETRON 4 MG INJ IV (22:27)
[2018-11-16 23:46] LABS: LACTIC ACID 1.6 mmol/L (0.5-2.0)
[2018-11-17] MEDS: HYDROmorphONE 1 MG/ML SYG IV ×2 (01:38→04:43)
[2018-11-17] MEDS ORDERED: VANCOMYCIN IV PER PHARMACY XX (07:00)
[2018-11-17] MEDS: SOD CHLORIDE 0.9% 1,000 ML IV (09:51)
[2018-11-17] MEDS: CEFEPIME 1GM/50 ML (PMX) 50 ML IVPB (09:56)
[2018-11-17] MEDS: HYDROmorphONE 2 MG/ML SYG IV ×2 (10:02→13:42)
[2018-11-17] MEDS ORDERED: ARTIFICIAL TEARS 15 ML OPH BOTH EYES (13:30)
[2018-11-17] MEDS ORDERED: ONDANSETRON 4 MG INJ IV (13:30)
[2018-11-17] MEDS ORDERED: ATROPINE 1% 5 ML OPH SL (13:30)
[2018-11-17] MEDS: HYDROmorphONE 50 MG in DEXTROSE 5% 50 ML IV (15:32)
[2018-11-18] MEDS ORDERED: VANCOMYCIN 750 MG (PMX) 250 ML IVPB (12:00)
[2018-11-18] MEDS: DIMETHICONE STICK TOP (12:41)
[2018-11-18] MEDS: HYDROmorphONE 50 MG in DEXTROSE 5% 50 ML IV ×2 (14:09→23:27)
[2018-11-18] MEDS: LORAZEPAM 2 MG INJ IV (22:59)
[2018-11-19] MEDS: HYDROmorphONE 50 MG in DEXTROSE 5% 45 ML IV ×2 (11:45→21:58)
[2018-11-20] MEDS: HYDROmorphONE 50 MG in DEXTROSE 5% 45 ML IV ×2 (06:28→15:32)
[2018-11-20] MEDS: LORAZEPAM 2 MG INJ IV (11:23)
[2018-11-21] MEDS: HYDROmorphONE 50 MG in DEXTROSE 5% 45 ML IV ×3 (02:01→20:37)
[2018-11-22] MEDS: LORAZEPAM 2 MG INJ IV ×2 (02:02→21:08)
[2018-11-22] MEDS: HYDROmorphONE 50 MG in DEXTROSE 5% 45 ML IV ×4 (03:13→21:37)
== END 2018-11-23 04:00 | disposition expired | DRG 975 ==
LOC: E/R 15:05 → 5EC 16:04
DX: B20 Human immunodeficiency virus [HIV] disease (principal); A41.01 Sepsis due to Methicillin susceptible Staphylococcus aureus; N17.9 Acute kidney failure, unspecified; R64 Cachexia; R52 Pain, unspecified; F41.9 Anxiety disorder, unspecified; M62.50 Muscle wasting and atrophy, not elsewhere classified, unspecified site; F15.11 Other stimulant abuse, in remission; F11.11 Opioid abuse, in remission; Z51.5 Encounter for palliative care; Z66 Do not resuscitate; Z86.79 Personal history of other diseases of the circulatory system; Z68.20 Body mass index [BMI] 20.0-20.9, adult; Z91.14 Patient's other noncompliance with medication regimen
CPT/HCPCS: 36415; 71045; 80053; 83605; 84484; 85025; 85610; 85730; 87040; 93005; 96374; 96375; 99285-25